=== PATIENT | female | born 1980 | race Caucasian/White ===

== ENCOUNTER 2016-11-30 04:22 | Emergency (ER) | payer SELFPAY ==
[~2016-11-30] VITALS: Ht 152.4 cm; Wt 61.4 kg
[~2016-11-30 04:22] MED LIST: FAMO-18 PO; VITAMIN D
[2016-11-30 04:26] VITALS: Ht 152.4 cm; Wt 61.4 kg
== END 2016-11-30 06:11 | disposition left against medical advice (07) ==
LOC: FTE 04:22
DX: Z53.21 Procedure and treatment not carried out due to patient leaving prior to being seen by health care provider (principal)

== ENCOUNTER 2017-11-30 22:30 | Emergency (ER) | END 2017-12-01 01:56 | disposition home or self-care (01) ==

== ENCOUNTER 2017-12-10 12:49 | Emergency (ER) | END 2017-12-10 16:56 | disposition home or self-care (01) ==

== ENCOUNTER 2018-06-28 19:05 | Emergency (ER) | payer BC ==
[~2018-06-28] VITALS: Wt 50.0 kg
[~2018-06-28 19:05] MED LIST changes: +CEPH-443 PO; -FAMO-18 PO; +FAMO-96 PO; +IBUP-1542 PO; +SULF1TAB31 PO
[2018-06-28 19:20] VITALS: BP 131/84; PULSE 98; RESP 26
--- NOTE | 2018-06-28 19:37 | ERD ---
ER Documentation Chief Complaint Chief Complaint Left shoulder pain HPI 38-year-old female history of hyperlipidemia brought to the ED by wheelchair for evaluation of left shoulder pain. Patient witnessed the of her [id number] earlier became anxious, lightheaded with nausea and vomiting and a code green was called and patient was brought to the ED for further evaluation. On arrival she denies any further anxiety but complains of a 4-month history of left shoulder pain which radiates up to her neck exacerbated by movement. Denies chest pain, palpitations, shortness of breath, abdominal pain or nausea. States her anxiety has resolved. Denies headache, visual changes, focal weakne ss or numbness. No fevers or chills. ROS All systems reviewed and are negative except as per history of present illness. Medications Home Meds Discontinued Reported Medications [Vitamin D ] No Conflict Check 06/13/15 Discontinued Scripts Sulfamethoxazole/Trimethoprim* (Bactrim Ds* Tablet) 1 Each Tablet, 1 TAB PO BID for 10 Days, #20 TAB Prov:VIOLA BANDA PA-C 12/10/17 Ibuprofen* (Motrin*) 600 Mg Tab, 600 MG PO Q6, #30 TAB Prov:GABRIELE HEARN PA-C 12/01/17 Cephalexin* (Keflex*) 500 Mg Capsule, 500 MG PO QID for 5 Days, CAP Prov:GABRIELE HEARN PA-C 12/01/17 Famotidine* (Pepcid*) 20 Mg Tablet, 20 MG PO BID, #30 TAB Prov:VIOLA BANDA PA-C 03/17/16 Allergies Allergies: Coded Allergies: morphine (Verified Allergy, Unknown, 06/28/18) vancomycin (Verified Allergy, Unknown, 06/28/18) PMhx/Soc Reviewed in chart. As per HPI. History of Surgery: Yes (APPENDECTOMY, CSECTIION X2) Anesthesia Reaction: No Hx Neurological Disorder: No Hx Respiratory Disorders: No Hx Cardiac Disorders: No Hx Psychiatric Problems: Yes (DEPRESSION/ANXIETY, PANIC ATTACKS) Hx Miscellaneous Medical Probl: Yes (ANEMIA) Hx Alcohol Use: No Hx Substance Use: No Hx Tobacco Use: No Smoking Status: Never smoker FmHx No family history of sudden cardiac or stroke Physical Exam Vitals Temperature 98.3. Blood pressure: 131/84. Pulse: 98. Respirations: 26. O2 saturation 98% on room air. Physical Exam Const: Alert, anxious, in mild distress. Head: Atraumatic Eyes: Normal Conjunctiva ENT: Normal External Ears, Nose and Mouth. Neck: Full range of motion. No midline bony tenderness or paraspinal muscle spasm. Resp: Breath sounds are equal and clear to auscultation bilaterally Cardio: Regular rate and rhythm, no murmurs Abd: Soft, non tender, non distended. Normal bowel sounds Skin: No petechiae or rashes Back: No midline or flank tenderness Ext: Left shoulder: Full range of motion. Mild generalized tenderness but no swelling, ecchymosis or deformity. Grace negative for impingement. Neur: Awake and alert Psych: Anxious but not depressed. Results 24 hrs Laboratory Tests Test 06/28/18 20:04 POC Beta HCG, Qualitative NEGATIVE Current Medications Medications Dose Sig/Olivia Start Time Status Last (Trade) Ordered Route PRN Stop Time Admin Dose Reason Admin Ketorolac 15 mg ONCE STAT 06/28/18 DC Tromethamine IM 19:45 (Toradol) 06/28/18 19:46 Procedures/MDM DOCUMENTS REVIEWED: ED nurse, prior ED, prior records. Multiple prior ED visits for assorted complaints. MEDICAL DECISION MAKIN-year-old female history of hyperlipidemia brought to the ED by wheelchair for evaluation of left shoulder pain. Patient witnessed the of her [id number] earlier became anxious, lightheaded with nausea and vomiting and a code green was called and patient was brought to the ED for further evaluation. No history of trauma and imaging is not indicated. Although considered the intrathoracic etiology is unlikely. Left shoulder pain exacerbated by movement which has been present for over 4 months likely musculoskeletal in etiology. There is no evidence of impingement or rotator cuff injury. Possible cervical radiculopathy. Patient refused nonsteroidal anti-inflammatories. Patient subsequently complained to the nurse of vaginal discharge/bleeding when she went to the bathroom however when I went back to talk to the patient she had eloped. Disposition: Eloped at 20:25. Departure Diagnosis: Primary Impression: Left shoulder pain Chronicity: chronic Qualified Codes: M25.512 - Pain in left shoulder; G89.29 - Other chronic pain Additional Impressions: Multiple complaints Eloped from emergency department Condition: Serious SEVERINO SPENCER MD Jun 28, 2018 19:37
[2018-06-28] MEDS: KETOROLAC 15 MG INJ IM STA ×2 (20:14→20:20)
== END 2018-06-28 20:25 | disposition left against medical advice (07) ==
LOC: E/R 19:05
DX: M25.512 Pain in left shoulder (principal); F41.9 Anxiety disorder, unspecified; R11.2 Nausea with vomiting, unspecified; R51 Headache; R40.2252 Coma scale, best verbal response, oriented, at arrival to emergency department; R40.2362 Coma scale, best motor response, obeys commands, at arrival to emergency department; R40.2142 Coma scale, eyes open, spontaneous, at arrival to emergency department
CPT/HCPCS: 81025; J1885; Z7502